=== PATIENT | male | born 1945 | race Caucasian/White ===

== ENCOUNTER 2018-02-10 10:05 | Day surgery (SDC) | payer MEDICARE, BC ==
[~2018-02-10] VITALS: Ht 167.6 cm; Wt 95.0 kg
[2018-02-10] VITALS (7 sets, daily range): BP systolic 103–131; BP diastolic 67–85; PULSE 78–88; TEMP 97.7–98
[2018-02-10] MEDS ORDERED: XARELTO20 MG PO (11:06)
[2018-02-10] MEDS ORDERED: PRILOSEC 20MG20 MG PO (11:06)
[2018-02-10] MEDS ORDERED: MULTAQ400 MG PO (11:07)
[2018-02-10] MEDS ORDERED: TRULICITY0.75 MG/0. SQ (11:07)
[2018-02-10] MEDS ORDERED: GLUCOPHAGE XR500 M1 PO (11:08)
[2018-02-10] MEDS ORDERED: PROSCAR 5MG5 MG PO (11:09)
[2018-02-10] MEDS ORDERED: PRINIVIL20 MG PO (11:09)
[2018-02-10] MEDS ORDERED: GLUCOTROL XL5 MG/TAB PO (11:09)
[2018-02-10] MEDS ORDERED: LIPITOR 40MG TA40 MG PO (11:10)
[2018-02-10] MEDS ORDERED: XALATAN EYE DROPS OU (11:10)
[2018-02-10] MEDS ORDERED: ALPHAG-P-0.1-10 OU (11:11)
[2018-02-10] MEDS ORDERED: TOPROL XL 25MG25 MG PO (11:11)
[2018-02-10] MEDS ORDERED: LASIX 20MG TABL20 MG PO (11:12)
[2018-02-10] MEDS ORDERED: COSOPT 2%-0.5%10 ML OU (11:12)
[2018-02-10] MEDS ORDERED: NIZORAL SHAMPO120 M1 TP (11:13)
== END 2018-02-10 14:45 | disposition home or self-care (01) ==
LOC: SDCO 10:05
DX: K57.30 Diverticulosis of large intestine without perforation or abscess without bleeding (principal); K92.1 Melena; R19.7 Diarrhea, unspecified; K21.0 Gastro-esophageal reflux disease with esophagitis; K31.89 Other diseases of stomach and duodenum; E78.00 Pure hypercholesterolemia, unspecified; E11.39 Type 2 diabetes mellitus with other diabetic ophthalmic complication; E66.9 Obesity, unspecified; Z68.34 Body mass index [BMI] 34.0-34.9, adult; Z79.01 Long term (current) use of anticoagulants
CPT/HCPCS: J2250; J2405; J3010; J7030

== ENCOUNTER 2020-08-17 09:34 | Observation (INO) | payer MEDICARE, BC ==
[~2020-08-17 09:34] MED LIST: ALPHAG-P-0.1-10 OU; COSOPT 2%-0.5%10 ML OU; GLUCOPHAGE XR500 M1 PO; GLUCOTROL XL5 MG/TAB PO; LASIX 20MG TABL20 MG PO; LIPITOR 40MG TA40 MG PO; MULTAQ400 MG PO; NIZORAL SHAMPO120 M1 TP; PRILOSEC 20MG20 MG PO; PRINIVIL20 MG PO; PROSCAR 5MG5 MG PO; TOPROL XL 25MG25 MG PO; TRULICITY0.75 MG/0. SQ; XALATAN EYE DROPS OU; XARELTO20 MG PO
[2020-08-17] MEDS ORDERED: MELATONIN3 M1 PO (11:35)
[2020-08-17] MEDS ORDERED: ONE-A-DAY ESSE1 EACH PO (11:35)
[2020-08-17] MEDS ORDERED: VITAMIND3 5000 PO (11:37)
[2020-08-17] MEDS ORDERED: NATURAL E400 IU PO (11:38)
[2020-08-17] MEDS ORDERED: LEXAPRO 10MG10 MG PO (11:39)
[2020-08-17 11:44] VITALS: BP 122/86; PULSE 87; TEMP 98
[2020-08-17 16:11] VITALS: BP 124/64; PULSE 71; TEMP 98
[2020-08-17 19:31] VITALS: BP 120/66; PULSE 72; TEMP 97.4
--- NOTE | 2020-08-17 19:41 | NUR ---
PT TRANSPORTED BY EMS FROM [facility]. ARRIVED IN STABLE CONDITION, A-FIB/FLUTTER CONTINUES BUT STABLE UNDER 100. PT DENIES PAIN, MED REC COMPLETED AND EDUCATION ABOUT PROCEDURES REVIEWED WITH PT. DR. CARRIZALES CALLED TO MAKE SURE HE CONVERSES WITH PT PRIOR TO PROCEDURE.
--- NOTE | 2020-08-17 20:00 | NUR ---
Assessment complete. Patient is alert and oriented with no complaints of pain. Heart sounds are normal with irregular rhythm; he is in afib with rate in 100's. Bilateral lower extremity edema is noted in legs and feet with 2+ pitting. Patient is breathing well on RA. Dr. Cooper, traveling phlebotomist, is in at this time to provide patient with SEBASTIÁN and CV education. No new concerns, will contiue to monitor.
[2020-08-17 20:46] VITALS: BP 151/74; PULSE 81; TEMP 97.8
[2020-08-17 23:10] VITALS: BP 130/71; BP 140/78; PULSE 63; PULSE 83; TEMP 102.5; TEMP 98.1
[2020-08-18 04:16] VITALS: BP 141/89; PULSE 64; TEMP 97.7
[2020-08-18 07:39] VITALS: BP 137/64; PULSE 57; TEMP 98
[2020-08-18 07:47] LABS: INR 1.9 (0.8-3.0); PROTHROMBIN TIME 21.4 SECONDS (9.7-12.8)
[2020-08-18 07:47] LABS: CALCIUM 8.9 mg/dL (8.4-10.2); CREATININE, serum 0.98 (0.66-1.25)
--- NOTE | 2020-08-18 07:47 | NUR ---
Patient is going down to supervisor laboratory at this time for SEBASTIÁN/CV, has been NPO, Consent signed and IVF put on gtt tubing, TOPHER Choudhury is transferring patient by bed
[2020-08-18 07:50] LABS: BASO # 0.1 (0.0-0.2); BASO % 0.8 % (0.0-2.0); EOS # 0.3 (0.0-0.7); EOS % 3.8 % (0-4.0); GRAN % 52.2 % (42.2-75.2); HEMATOCRIT 40.2 % (42.0-52.0); HEMOGLOBIN 13.4 g/dl (13.5-18.0); LYMPH # 2.4 (1.2-3.4); LYMPH % 31.3 % (20.0-51.0); MEAN CELL VOLUME 85 fl (80.0-100.0); MEAN CORPUSCULAR HEMOGLOBIN 28 pg (27.0-31.0); MEAN CORPUSCULAR HGB CONC 33 g/dl (33.0-37.0); MEAN PLATELET VOLUME 11.3 fl (7.4-10.4); MONO # 0.9 (0.1-0.6); MONO % 11.3 % (1.7-9.3); PLATELET COUNT 219 K/mm3 (130-400); RED BLOOD COUNT 4.74 M/mm3 (4.20-5.60); REDCELL DISTRIBUTION WIDTH-CV 13.4 % (11.5-14.5)
--- NOTE | 2020-08-18 08:00 | NUR ---
Assessment completed, alert/oriented, vital signs stable, denies any chest pain/discomfort/palpitations, heart irregular/ A.fib on tele with rate controlled, he is scheduled for SEBASTIÁN/CV this morning and is going down for that now, denies any SOA or resp.difficulty and lungs CTA, denies other needs
[2020-08-18 08:18] LABS: THYROID STIMULATING HORMONE 4.43 uIU/mL (0.465-4.680)
[2020-08-18 09:15] VITALS: BP 103/75; PULSE 87
[2020-08-18 09:45] VITALS: BP 108/76; PULSE 88
[2020-08-18 10:15] VITALS: BP 112/70; PULSE 86
--- NOTE | 2020-08-18 10:34 | NUR ---
Initial visit; Patient thanked Chaplainfor looking in on him, visiting and offering prayer and God's blessings.
[2020-08-18 11:00] VITALS: BP 108/72; PULSE 85; TEMP 98.1
--- NOTE | 2020-08-18 13:28 | NUR ---
SW met with the patient to discuss discharge plan. The patient lives alone in [place]. He reports independence with ADLs and does not have any DME. The patient's PCP is Dr. Andrew Meyer and he receives his medications from [facility]. He reports no difficulties obtaining his meds. The patient does not have a DPOA-HC and he was not interested in completing one while here. The patient states that he is , but that his is in assisted living and unable to make decisions. He states that he has two children. The patient refused to give SW the name of his other child. His one daughter, Wendy (ph#[phone]), lives in [place]. The patient plans to return home upon discharge. No additional needs at this time.
--- NOTE | 2020-08-18 16:11 | NUR ---
Discharge orders discussed with the patient, instructed to keep previously scheduled follow up with his primary Container Coordinator, instructed to continue all prior home meds, IV and tele removed, patient ambulatory and I escorted him out the door
== END 2020-08-18 16:12 | disposition home or self-care (01) ==
LOC: MEDICAL 09:34
PROVIDERS: ADMIT Internal Medicine Interventional Cardiology
DX: I48.91 Unspecified atrial fibrillation (principal); I25.10 Atherosclerotic heart disease of native coronary artery without angina pectoris; R60.0 Localized edema; I10 Essential (primary) hypertension; G47.33 Obstructive sleep apnea (adult) (pediatric); K21.9 Gastro-esophageal reflux disease without esophagitis; H40.9 Unspecified glaucoma; E11.9 Type 2 diabetes mellitus without complications; Z79.4 Long term (current) use of insulin; Z95.818 Presence of other cardiac implants and grafts; Z79.01 Long term (current) use of anticoagulants; Z79.899 Other long term (current) drug therapy
CPT/HCPCS: G0378; J2704